=== PATIENT | female | born 2000 | race Caucasian/White ===

== ENCOUNTER 2022-07-16 23:20 | Emergency (ER) | payer OTHER ==
[2022-07-17 01:05] LABS: HEMOGLOBIN 13.5 gm/dl (12.3-15.3); RED BLOOD COUNT 4.62 M/UL (4.00-5.10); WHITE BLOOD COUNT 11.7 K/UL (4.5-11.0)
[2022-07-17 01:27] LABS: BUN/CREATININE RATIO 17 (0-10)
[2022-07-17] MEDS ORDERED: OMEPRAZOLE20 M1 PO (03:42)
[2022-07-17] MEDS ORDERED: ZOFRAN 4 MG TAB4 MG PO (03:42)
[2022-07-17] MEDS ORDERED: ULTRAM50 MG PO (03:42)
== END 2022-07-17 03:47 | disposition home or self-care (01) ==
LOC: ER1 23:20
PROVIDERS: Emergency Medicine
DX: R10.13 Epigastric pain (principal); F17.200 Nicotine dependence, unspecified, uncomplicated
CPT/HCPCS: 80053; 83690; 84703; 85025; 96361; 96374; 96375; 99284; J1885; J2270; J2405; Q9967